=== PATIENT | male | born 1990 | race Caucasian/White ===

== ENCOUNTER 2022-08-30 23:43 | Emergency (ER) | payer OTHER, SELFPAY ==
[2022-08-30 23:52] VITALS: BP 133/77; PULSE 58; RESP 17; TEMP 36.4; O2SAT 98; BMI 21.9
--- NOTE | 2022-08-31 02:01 | ED_ITS ---
HPI - General Adult General Chief complaint: Extremity Injury, Upper Stated complaint: left side arm numbness Time Seen by Provider: 08/31/22 01:56 Source: patient Mode of arrival: Ambulatory History of Present Illness HPI narrative: Patient is an otherwise healthy 31-year-old male who is here for evaluation of tingling and numbness on the left arm. Is on the ulnar side of the arm. It goes from his elbow down to his fingers. He states that it actually has improved with the time of my evaluation from his onset. It started after he fell asleep in a chair at work. When his coworkers woke him up he noticed the tingling. He reports no other symptoms associated with this. He was concerned that maybe he was having a stroke. He is never had these symptoms in the past. Related Data Allergies Allergy/AdvReac Type Severity Reaction Status Date / Time No Known Drug Allergies Allergy Verified 08/30/22 23:52 Review of Systems Constitutional Constitutional: Reports system reviewed and no additional complaints, except as documented Musculoskeletal Musculoskeletal: Reports system reviewed and no additional complaints, except as documented Integumentary/Breasts Skin/Breast: Reports system reviewed and no additional complaints, except as documented Neurologic Neurologic: Reports system reviewed and no additional complaints, except as documented Patient History Social History Smoking Status: Never smoker Smoking Status: Never smoker alcohol intake frequency: a few times a month Substance Use Type: does not use Exam Initial Vital Signs Initial Vital Signs: Vital Signs Temperature 97.5 F L 08/30/22 23:52 Pulse Rate 58 L 08/30/22 23:52 Respiratory Rate 17 08/30/22 23:52 Blood Pressure 133/77 08/30/22 23:52 Pulse Oximetry 98 08/30/22 23:52 Oxygen Delivery Method 08/30/22 23:52 HENKY Head: normal to inspection and normocephalic Cardio Pulses: radial pulses present on the left Skin General: no rashes or lesions noted Neuro Sensory Exam: no sensory deficits noted Extrem Other: Patient does not have any tenderness with palpation over the ulnar nerve. Flexion-extension of the left wrist is unremarkable. Left elbows unremarkable. Left shoulder is unremarkable. Course Vital Signs Vital signs: Vital Signs - 8 hr 08/30/22 23:52 08/31/22 02:22 Temperature 97.5 F L Pulse Rate 58 L 58 L Respiratory Rate 17 17 Blood Pressure 133/77 116/79 Pulse Oximetry 98 98 Oxygen Delivery Method Room Air Room Air Medical Decision Making MDM Narrative Medical decision making narrative: This sensation of his tingling is located in the distribution of the ulnar nerve on the left side. He states that his symptoms have actually improved from the onset. No specific trauma. I suspect that he just had pressure over this nerve while he was sleeping causing a neurapraxia that per his report is actually improving. We can hold on further radiologic studies. Low suspicion for fr acture. Low suspicion for infection. He was given return precautions. He expressed understanding and agreement. Discharge Plan Departure Patient Disposition: Home Clinical Impression: Arm paresthesia, left Instructions: DI for Numbness/Tingling Activity Restrictions/Additional Instructions: I would expect that your symptoms will improve over the next several hours. Contact your medical department for a follow-up. Return to the emergency department for any new or worsening symptoms. Referrals: ProviderManpreet [Primary Care Provider] - Stand Alone Forms: Patient Portal/API
[2022-08-31 02:22] VITALS: BP 116/79; PULSE 58; RESP 17; O2SAT 98
== END 2022-08-31 02:25 | disposition home or self-care (01) ==
PROVIDERS: Emergency Provider Emergency Medicine
DX: R20.2 Paresthesia of skin (principal)
CPT/HCPCS: 99281